=== PATIENT | male | born 1980 | race Caucasian/White ===

== ENCOUNTER 2019-09-11 11:05 | Emergency (ER) | payer BC, SELFPAY ==
[2019-09-11] VITALS (9 sets, daily range): BP systolic 163–218; BP diastolic 104–139; PULSE 78–104; RESP 16–20; TEMP 36.8; O2SAT 96–99; BMI 35.4
--- NOTE | 2019-09-11 11:24 | EKG12_ITS ---
Test Reason : CP Blood Pressure : / mmHG Vent. Rate : 107 BPM Atrial Rate : 107 BPM P-R Int : 166 ms QRS Dur : 082 ms QT Int : 348 ms P-R-T Axes : 044 -15 008 degrees QTc Int : 464 ms Sinus tachycardia Minimal voltage criteria for LVH, may be normal variant Borderline ECG Confirmed by BRYN LUTHER, CHAPIS ([id number]), editorial specialist NIKITA YOUNG ([id number] on 09/24/2019 2:04:13 PM Referred By: SARAH Confirmed By:CHAPIS CLEMENTE MD
--- NOTE | 2019-09-11 11:25 | RAD_ITS ---
STUDY: X-RAY CHEST REASON FOR EXAM: Male, 38 years old. Sternal chest pain. TECHNIQUE: Single AP portable view of the chest. COMPARISON: None. FINDINGS: EKG electrodes are seen. The lungs are clear and expanded. There is no demonstrated pleural abnormality. Normal size heart. Normal mediastinum and mary. Normal visualized pulmonary arteries. Normal visualized aortic arch and descending thoracic aorta. Normal visualized thoracic spine. Normal visualized ribs, clavicles, and shoulders. There is no demonstrated abnormality of the visualized soft tissue structures of the upper abdomen. RAD/Chest PA and Lateral IMPRESSION: Normal x-ray examination of the chest. Electronically Signed: Giuseppe Schmidt, at 12:20 EST , Service support ,
[2019-09-11 11:33] LABS: Absolute Lymphocyte Count 1.79 X10^3/uL (0.83-4.51); Absolute Neutrophil Count 5.7 X10^3/uL (2.0-7.7); Basophil# 0.03 X10^3/uL; Basophil% 0.4 % (0-1); Eosinophil# 0.04 X10^3/uL; Eosinophils% 0.5 % (0-5); Hematocrit 47.4 % (40-54); Hemoglobin 16.1 g/dL (13.0-16.5); Lymphocyte # 1.79 X10^3/ul (4.0); Lymphocyte % 21.5 % (19-41); Mean Corpuscular Hgb 31.3 pg (27.0-32.0); Mean Platelet Vol. 9.4 fl (6.2-12.0); Monocyte# 0.73 X10^3/uL; Monocyte% 8.8 % (0-10); NRBC Flagged by Analyzer 0 % (0-5); Neutrophil # 5.71 X10^3/uL (2.7-7.7); Neutrophil % 68.4 % (47-70); Platelet Count 283 K/mm3 (150-450); RBC Distribution Width CV 12.2 % (11.6-14.6); RBC Distribution Width SD 41.4 fl (35.1-43.9); Red Blood Count 5.15 M/mm3 (4.6-6.2); White Blood Count 8.3 K/mm3 (4.4-11.0)
[2019-09-11] MEDS: Aspirin 81 MG TAB.CHEW 324 MG PO (11:36)
[2019-09-11] MEDS: 0.9% Normal Saline 1,000 ML 1000 ML IV (11:37)
[2019-09-11 11:48] LABS: Anion Gap 7 (5-15); BUN 12 mg/dL (7-18); BUN/Creat Ratio 13.1 RATIO (10-20); Calcium,Total 9.3 mg/dL (8.5-10.1); Chloride 105 mmol/L (98-107); Creatinine, Serum 0.91 mg/dL (0.70-1.30); EST Glomerular Filtration Rate 99 mL/min (>60); Est Glom Filt Rate - Afr Amer 119 mL/min (>60); Estimated Creatinine Clearance 103.91 ml/min; Glucose 111 mg/dL (74-106); Potassium 3.6 mmol/L (3.5-5.1); Sodium Level 139 mmol/L (136-145)
--- NOTE | 2019-09-11 11:55 | CT_ITS ---
STUDY: CTA CHEST REASON FOR EXAM: Male, 38 years old. Sternal chest pain. Hypertension. RADIATION DOSAGE (If Supplied By Facility): CTDIvol = ( 14.30 ) mGy, DLP = ( 641.53 ) mGycm TECHNIQUE: The examination was performed with the intravenous administration of IV Isovue 370 100mL. Post-processing of the angiographic images was performed, with multiplanar reformation and 3D reconstruction. Individualized dose optimization techniques were used for this CT. COMPARISON: None. FINDINGS: Normal enhancement of the main pulmonary artery and right and left pulmonary arteries. Normal enhancement of the bilateral peripheral pulmonary arteries. There is no demonstrated pulmonary embolism. Normal thoracic aorta and visualized great vessels. There is no demonstrated aortic dissection. Normal heart and pericardium. Normal mediastinum. Normal hilar regions. Normal visualized trachea and bronchi. The lungs are well expanded. Normal pulmonary parenchyma. Normal pleura. Normal chest wall structures. Normal osseous structures. Fatty infiltration of the liver. CT/CTA Chest W/WO Contrast IMPRESSION: Normal CTA chest examination, without a demonstrated pulmonary embolism or arterial dissection. Electronically Signed: Giuseppe Schmdit, at 12:25 EST , Service support ,
--- NOTE | 2019-09-11 11:57 | ED.VIS.GEN ---
History of Present Illness <Santosh Santacruz - Last Filed: 09/11/19 15:50> Informant: Patient, Family Onset: Today Context: Sudden Onset Timing: Continuous Quality: aching Location: across entire chest Current Severity: Moderate Maximum Severity: Severe Worsened by: nothing Relieved by: nothing Associated Symptoms: denies Narrative: 38-year-old male who denies any significant past medical history presents to the emergency department with chest pain. Patient was putting his socks on this morning and had an aching pain in his back and now his chest. Is been constant since 5:30 AM and nothing makes it better or worse. He has not been lightheaded or dizzy. No diaphoresis. No nausea or vomiting. No fevers or cough. No recent illness or hospitalization. No recent travel or surgery. No history of DVT or PE. Denies any medical history and he does not smoke but he does have family history of heart disease with his father having a heart attack when he was 43 years old. Saw primary care physician for the first time in many years last month and he states that he was told he had normal blood pressure and no other findings that would require medication but he is never had a cardiac stress test. Prior similar symptoms: No Recent Illness/Hospitalization: No <Rodolfo Garay - Last Filed: 09/11/19 16:00> Chief Complaint: Chest Pain Past Medical History Smoking Status: Never smoker <Santosh Santacruz - Last Filed: 09/11/19 15:50> Prior records reviewed: Yes Past Medical History: None Surgical History: no surgical history Lives: With Family <Rodolfo Garay - Last Filed: 09/11/19 16:00> - Allergies and Home Meds Allergies/Adverse Reactions: Allergies No Known Allergies Allergy (Verified 09/11/19 11:08) Primary Care Physician: Adarsh Head MD [Primary Care Provider] - Review of Systems All systems negative except as indicated General: Denies: Chills, Fever Eyes: Denies: Visual changes - left, Visual changes - right Cardiovascular: Reports: Chest pain. Denies: Palpitations, Heart racing Respiratory: Denies: Dyspnea Gastrointestinal: Denies: Abdominal pain, Nausea, Vomiting Genitourinary: Denies: Hematuria Musculoskeletal: Reports: Back pain. Denies: Neck pain Skin: Denies: Rash Neurological: Denies: Headache, Weakness, Parasthesia <Rodolfo Garay - Last Filed: 09/11/19 16:00> Physical Exam Vital Signs/Narrative: Vital Signs Temp Pulse Resp BP Pulse Ox 09/11/19 11:06 98.2 F 104 H 16 218/127 H 98 <Santosh Santacruz - Last Filed: 09/11/19 15:50> Vital Signs/Narrative: Vital Signs Temp Pulse Resp BP Pulse Ox 09/11/19 12:53 81 185/115 H 09/11/19 12:22 88 206/122 H 09/11/19 12:06 195/124 H 09/11/19 11:06 98.2 F 104 H 16 218/127 H 98 Inital Vital Signs reviewed: Yes General: Well nourished, Well developed, No Acute Distress Head: Normocephalic, Atraumatic Eyes: Perrl, EOMI ENT: Moist mucous membranes Neck: Supple, Nontender Cardiovascular: Regular rate, Regular rhythm, No murmurs, Normal S1, Normal S2 Respiratory: No distress, CTA bilaterally, Chest nontender Abdomen: Soft, Nontender, Nondistended, Normal bowel sounds, No masses Back: Nontender, Normal Inspection Extremities: Nontender, No edema Skin: Normal color, No rash Neurological: Alert, Oriented x3, Normal Strength, Normal Sensation Psychological: Normal affect <Rodolfo Garay - Last Filed: 09/11/19 16:00> Diagnostic/Tx/Re-eval - Medical Decision Making Patient with no significant past medical history complaining of chest and back pain. Upper mid thoracic spine region. Seen and evaluated with our physician assistant community manager. Patient states he had initially admitted intrascapular back pain today and now chest discomfort. He has no history of hypertension but has elevated blood pressure today. No exertional chest pain or exertional dyspnea. No history of DVT or PE. No radiation to his arms or legs. No numbness or tingling or weakness. Physical exam is unremarkable. His back pain is not reproducible. Lungs are clear. Heart regular rhythm no murmur. His blood pressure when I am in the room is 217/128. That will be treated with Lopressor. His cardiac work-up including CBC, chemistry, chest x-ray and troponin are all unremarkable. I will obtain a CTA of the chest to evaluate for a potential aortic dissection. Clinically looks well. He is equal symmetrical radial pulses. There is no sign of a dissection on his plain chest x-ray. Impression: Atypical chest and back pain Acutely elevated blood pressure Patient was treated with Lopressor times 3 which improved his blood pressure but then he still was significantly elevated was given p.o. lisinopril. Multiple repeat blood pressures been obtained currently is 163/108. Given that the rest of his work-up is unremarkable he does not show signs of long-standing hypertension. His creatinine is normal. He does not have a dissection. This does not sound cardiac. He will be discharged home on lisinopril 20 daily and follow-up with his primary care physician. I have their office on page to discuss with him follow-up care. <Santosh Santacruz - Last Filed: 09/11/19 15:50> Chest X-Ray - ED: 2 View, Read by ED Physician, Read by Radiologist, No Acute Disease - Rhythm Strip Rhythm Strip: Sinus Tach Rate: 111 Ectopy: None - EKG Initial EKG Interpretation: No Acute Injury Pattern, Sinus Tachycardia Prior: No Prior - Medical Decision Making Dr. Kumar who is covering for the patient's primary care physician was contacted. He is agreeable with plan of discharge and having the patient follow-up with him as an outpatient with 20 mg of daily lisinopril added to his regimen. At this time the patient's blood pressure is much improved. He remains asymptomatic. He is agreeable with plan of care. <Rodolfo Garay - Last Filed: 09/11/19 16:00> ED Disposition <Santosh Santacruz - Last Filed: 09/11/19 15:50> <Rodolfo Garay - Last Filed: 09/11/19 16:00> - Plan for ED Patient: Disposition: Home or Assisted Living Diagnosis: Chest pain, Hypertension Prescriptions: Lisinopril 20 mg PO DAILY #30 tab Prescription Printed Referrals: Adarsh Head MD [Primary Care Provider] -
[2019-09-11] MEDS: Metoprolol Tartrate 5 MG/5 ML Vial IV ×3 (12:15→12:30)
[2019-09-11] MEDS: Lisinopril 20 MG Tablet PO (14:36)
== END 2019-09-11 16:16 | disposition home or self-care (01) ==
PROVIDERS: Physician Assistant Medical; Emergency Provider Emergency Medicine; Family Provider Family Medicine; PCP Family Medicine
DX: R07.89 Other chest pain (principal); M54.6 Pain in thoracic spine; R03.0 Elevated blood-pressure reading, without diagnosis of hypertension; Z82.49 Family history of ischemic heart disease and other diseases of the circulatory system
CPT/HCPCS: 71046; 71275; 80048; 84484; 85025; 93005; 96360; 96361; 99285; J7030; Q9967; A4216

== ENCOUNTER → 2021-02-13 09:10 | Outpatient (CLI) | payer BC, SELFPAY ==
[2019-09-11 11:06] VITALS: BMI 35.4
[2021-02-13 09:58] LABS: Absolute Lymphocyte Count 1.87 X10^3/uL (0.83-4.51); Absolute Neutrophil Count 3.6 X10^3/uL (2.0-7.7); Basophil# 0.02 X10^3/uL; Basophil% 0.3 % (0-1); Eosinophils% 1.6 % (0-5); Hematocrit 46.4 % (40-54); Hemoglobin 15.2 g/dL (13.0-16.5); Lymphocyte # 1.87 X10^3/ul (4.0); Lymphocyte % 30.5 % (19-41); Mean Corp Hgb Conc 32.8 g/dL (32-36); Mean Corpuscular Hgb 30.5 pg (27.0-32.0); Mean Corpuscular Volume 93.2 fL (80-94); Mean Platelet Vol. 9.9 fl (6.2-12.0); Monocyte# 0.52 X10^3/uL; Monocyte% 8.5 % (0-10); NRBC Flagged by Analyzer 0 % (0-5); Neutrophil # 3.61 X10^3/uL (2.7-7.7); Neutrophil % 58.9 % (47-70); Platelet Count 277 K/mm3 (150-450); RBC Distribution Width CV 11.9 % (11.6-14.6); Red Blood Count 4.98 M/mm3 (4.6-6.2); White Blood Count 6.1 K/mm3 (4.4-11.0)
== END ==
PROVIDERS: PCP Family Medicine; Referring Provider Family Medicine; Visit Provider Family Medicine
DX: I10 Essential (primary) hypertension (principal)
CPT/HCPCS: 36415; 80053; 80061; 85025

== ENCOUNTER → 2021-02-20 09:08 | Outpatient (CLI) | payer BC, SELFPAY ==
[2019-09-11 11:06] VITALS: BMI 35.4
[2021-02-20 10:19] LABS: ALB/GLOB Ratio 1.1 RATIO (0.9-2.4); AST(SGOT) 14 U/L (15-37); Alanine Aminotransfer ALT/SGPT 37 U/L (16-61); Albumin, Serum 3.8 g/dL (3.2-5.0); Alkaline Phosphatase 95 U/L (45-117); Anion Gap 4 (5-15); BUN 10 mg/dL (7-18); BUN/Creat Ratio 10.9 RATIO (10-20); Calcium,Total 8.9 mg/dL (8.5-10.1); Chloride 106 mmol/L (98-107); Cholesterol 188 mg/dL (200); Creatinine, Serum 0.92 mg/dL (0.70-1.30); EST Glomerular Filtration Rate 98 mL/min (>60); Est Glom Filt Rate - Afr Amer 118 mL/min (>60); Globulin 3.6 g/dL (2.2-4.2); Glucose 105 mg/dL (74-106); High Density Lipoprotein 60 mg/dL; Potassium 4.3 mmol/L (3.5-5.1); Protein, Total 7.4 g/dL (6.4-8.2); Sodium Level 140 mmol/L (136-145); Triglycerides 119 mg/dL; Very Low Density Lipoprotein 24 mg/dL (5-40)
== END ==
LOC: LAB 09:09
PROVIDERS: PCP Family Medicine; Referring Provider Family Medicine; Visit Provider Family Medicine
DX: I10 Essential (primary) hypertension (principal)
CPT/HCPCS: 80053; 80061

== ENCOUNTER 2022-10-18 16:26 | Outpatient (CLI) | payer BC, SELFPAY ==
[2022-10-18 17:58] LABS: Absolute Lymphocyte Count 2.45 X10^3/uL (0.83-4.51); Absolute Neutrophil Count 4.3 X10^3/uL (2.0-7.7); Basophil# 0.03 X10^3/uL; Basophil% 0.4 % (0-1); Eosinophil# 0.16 X10^3/uL; Eosinophils% 2.1 % (0-5); Hematocrit 44.4 % (40-54); Hemoglobin 15.2 g/dL (13.0-16.5); Lymphocyte # 2.45 X10^3/ul (0.83-4.51); Lymphocyte % 32.1 % (19-41); Mean Corp Hgb Conc 34.2 g/dL (32-36); Mean Corpuscular Hgb 31.6 pg (27.0-32.0); Mean Corpuscular Volume 92.3 fL (80-94); Mean Platelet Vol. 10.2 fl (6.2-12.0); Monocyte# 0.73 X10^3/uL; Monocyte% 9.6 % (0-10); NRBC Flagged by Analyzer 0 % (0-5); Neutrophil # 4.26 X10^3/uL (2.7-7.7); Neutrophil % 55.7 % (47-70); Platelet Count 286 K/mm3 (150-450); RBC Distribution Width CV 11.9 % (11.6-14.6); RBC Distribution Width SD 39.9 fl (35.1-43.9); Red Blood Count 4.81 M/mm3 (4.6-6.2); White Blood Count 7.6 K/mm3 (4.4-11.0)
[2022-10-18 18:34] LABS: Anion Gap 9 (5-15); BUN 15 mg/dL (7-18); BUN/Creat Ratio 17.4 RATIO (10-20); Calcium,Total 9.5 mg/dL (8.5-10.1); Chloride 103 mmol/L (98-107); Creatinine, Serum 0.86 mg/dL (0.70-1.30); EST Glomerular Filtration Rate 104 mL/min (>60); Est Glom Filt Rate - Afr Amer 126 mL/min (>60); Glucose 86 mg/dL (74-106); Potassium 4.3 mmol/L (3.5-5.1); Sodium Level 137 mmol/L (136-145)
== END 2022-10-18 23:59 | disposition home or self-care (01) ==
LOC: MFPLAB 16:28
PROVIDERS: PCP Nurse Practitioner Family; Referring Provider Nurse Practitioner Family; Visit Provider Nurse Practitioner Family
DX: I10 Essential (primary) hypertension (principal)
CPT/HCPCS: 36415; 80048; 85025